=== PATIENT | female | born 1985 | race Caucasian/White ===

== ENCOUNTER 2016-12-24 08:56 | Emergency (ER) | payer OTHER, MEDICAID ==
[2016-12-24] MEDS ORDERED: SODIUM CHLORIDE 0.9% 1,000 ML ONE (10:24)
[2016-12-24] MEDS ORDERED: KETOROLAC TROMETHAMINE 30 MG/ML 1 ML VIAL ONE (10:24)
[2016-12-24 10:39] LABS: URINE BILIRUBIN NEGATIVE (NEGATIVE); URINE BLOOD NEGATIVE (NEGATIVE); URINE GLUCOSE (UA) NEGATIVE (NEGATIVE); URINE LEUKOCYTE ESTERASE NEGATIVE (NEGATIVE); URINE NITRITE NEGATIVE (NEGATIVE); URINE PROTEIN NEGATIVE (NEGATIVE); URINE UROBILINOGEN NORMAL (0-1 mg/dl)
[2016-12-24 10:40] LABS: HCG,QUALITATIVE URINE NEGATIVE; URINE APPEARANCE CLEAR; URINE COLOR YELLOW
[2016-12-24 10:51] LABS: ABSOLUTE NEUTROPHIL COUNT 4.7 K/mm3 (1.8-7.7); BASO % 0.4 % (0.2-1.0); EOS % 0.4 % (0.9-2.9); HEMATOCRIT 42.6 % (37.0-47.0); HEMOGLOBIN 14.4 gm/l (12.0-16.0); IMM NEUT% 0.1 % (0-1); LYMPH # 1.9 (1.0-4.8); MEAN CELL VOLUME 88.8 fl (81.0-99.0); MEAN CORPUSCULAR HGB CONC 33.8 g/dl (33.0-37.0); MEAN PLATELET VOLUME 11.2 fl (7.4-10.4); MONO # 0.3 (0.0-0.8); MONO % 4.7 % (4-12); NEUT % 67.4 % (43-75); PLATELET COUNT 137 K/mm3 (130-400); RED CELL DISTRIBUTION WIDTH 12.5 % (11.5-14.5)
[2016-12-24] MEDS ORDERED: MECLIZINE HCL 25 MG TABLET ONE (13:10)
[2016-12-24 13:21] LABS: I-STAT CREATININE 0.8 mg/dL (0.6-1.3)
[2016-12-24] MEDS ORDERED: PREDNISONE 20 MG TABLET ONE (14:19)
[2016-12-24 22:17] LABS: C-REACTIVE PROTEIN 0.5 mg/dl (<1.0)
[2016-12-24 22:28] LABS: ALB/GLOB RATIO 1.3 (>1.0); CALCIUM 9.1 mg/dL (8.6-10.3)
== END 2016-12-24 15:02 | disposition home or self-care (01) ==
LOC: ED 08:56
DX: R42 Dizziness and giddiness (principal); R59.9 Enlarged lymph nodes, unspecified; R53.1 Weakness
CPT/HCPCS: 81025; 86141; 85025; 80053; 81003; 87880; 36415 ×2; 99284; 96374; 96361 ×4; 99283; A9270; J7512; J1885; J7030